=== PATIENT | male | born 1980 | race Hispanic/Latino ===

== ENCOUNTER 2023-07-13 09:06 | Emergency (ER) | payer OTHER ==
[2023-07-13] MEDS ORDERED: Proparacaine 0.5% Opth 15 ML BOT ONE (09:16)
[2023-07-13] MEDS ORDERED: Fluorescein Opthalmic Strip ONE (09:16)
== END 2023-07-13 10:01 | disposition home or self-care (01) ==
LOC: ERS 09:06
DX: T15.01XA Foreign body in cornea, right eye, initial encounter (principal); F17.210 Nicotine dependence, cigarettes, uncomplicated; W31.1XXA Contact with metalworking machines, initial encounter
CPT/HCPCS: 99283